=== PATIENT | male | born 1995 | race African-American/Black ===

== ENCOUNTER 2019-05-20 02:48 | Emergency (ER) | payer SELFPAY ==
[~2019-05-20] VITALS: Ht 180.3 cm; Wt 84.0 kg
[2019-05-20] MEDS ORDERED: HYDROCODONE/ACETAMINOPHEN 5/325MG TABLET PO ONE (04:15)
[2019-05-20] MEDS: LIDOCAINE HCL/PF 1% 10 MG/ML 5ML VIAL IJ ONE (04:30)
[2019-05-20] MEDS: KETOROLAC 15MG/ML VIAL IV ONE (04:32)
[2019-05-20 07:06] VITALS: BP 133/82
== END 2019-05-20 07:09 | disposition home or self-care (01) ==
LOC: ER 03:12
DX: S01.511A Laceration without foreign body of lip, initial encounter (principal); Y08.89XA Assault by other specified means, initial encounter; Y93.89 Activity, other specified; Y92.89 Other specified places as the place of occurrence of the external cause; Y99.8 Other external cause status; F12.10 Cannabis abuse, uncomplicated
CPT/HCPCS: 12013; 70450; 70486; 96374; 99284; J1885; J3490; Z7610